=== PATIENT | female | born 1990 | race Caucasian/White ===

== ENCOUNTER 2016-12-02 14:41 | Observation (INO) | payer OTHER ==
[~2016-12-02] VITALS: Ht 157.5 cm; Wt 87.5 kg
[2016-12-02 15:35] VITALS: BP 117/74
== END 2016-12-02 17:55 | disposition home or self-care (01) ==
LOC: 4S 14:41
PROVIDERS: ADMIT Obstetrics & Gynecology; ATTEND Obstetrics & Gynecology
DX: O62.9 Abnormality of forces of labor, unspecified (principal); O26.893 Other specified pregnancy related conditions, third trimester; R10.9 Unspecified abdominal pain; Z3A.38 38 weeks gestation of pregnancy
CPT/HCPCS: 59025; G0378

== ENCOUNTER 2016-12-04 14:35 | Inpatient (IN) | payer OTHER ==
[~2016-12-04] VITALS: Ht 157.5 cm; Wt 87.5 kg
[2016-12-04 14:52] VITALS: BP 115/76
[2016-12-04] MEDS ORDERED: PREN1TAB80 PO (14:53)
[2016-12-04] MEDS ORDERED: OXYTOCIN 30 UNITS/LACT RINGERS 500 ML IV ONE (17:39)
[2016-12-04] MEDS ORDERED: RINGERS SOLUTION,LACTATED 1,000 ML IV SCH ×2 (17:39)
[2016-12-04] MEDS ORDERED: RINGERS SOLUTION,LACTATED 1,000 ML IV PRN (17:39)
[2016-12-04] MEDS ORDERED: METOCLOPRAMIDE HCL 5 MG/ML 2 ML VIAL IVP PRN (17:45)
[2016-12-04] MEDS ORDERED: CITRIC ACID/SODIUM CITRATE 30 ML SOLUTION UDCUP PO PRN (17:45)
[2016-12-04 18:07] LABS: BASOPHILS # (AUTO) 0.04 K/uL (0.00-0.20); BASOPHILS % (AUTO) 0.4 % (0.0-2.0); EOSINOPHILS # (AUTO) 0.18 K/uL (0.00-0.70); EOSINOPHILS % (AUTO) 1.85 % (1.0-6.0); HEMATOCRIT 38.5 % (36-46); LYMPHOCYTES # (AUTO) 1.8 K/uL (1.0-4.8); LYMPHOCYTES % (AUTO) 17.9 % (22.0-44.0); MEAN CORPUSCULAR HEMOGLOBIN 31.3 pg (26.0-34.0); MEAN CORPUSCULAR HGB CONC 33.7 G/dL (31.0-37.0); MEAN CORPUSCULAR VOLUME 93 fL (80-100); MONOCYTES # (AUTO) 0.8 K/uL (0.1-1.0); MONOCYTES % (AUTO) 7.5 % (2.0-9.0); NEUTROPHILS # (AUTO) 7.3 K/uL (1.8-7.7); NEUTROPHILS % (AUTO) 72.4 % (40.0-70.0); RED BLOOD CELL COUNT(AUTO) 4.14 MIL/uL (4.00-5.20); RED CELL DISTRIBUTION WIDTH 13.6 % (11.5-14.5)
[2016-12-04] MEDS: MISOPROSTOL 25 MCG TABLET VG SCH ×2 (18:18→21:25)
[2016-12-04] MEDS ORDERED: OXYGEN THERAPY IH SCH (20:00)
[2016-12-04] MEDS: FentaNYL CITRATE-PF 100 MCG/2 ML VIAL IVP PRN (23:55)
[2016-12-05] MEDS: FentaNYL CITRATE-PF 100 MCG/2 ML VIAL IVP PRN
[2016-12-05] MEDS ORDERED: LIDOCAINE HCL 2%/EPI 1:200,000/PF 10 ML VIAL ONE (00:59)
[2016-12-05] MEDS ORDERED: FentaNYL/BUPIV 0.125%/NS/PF 200 ML ED ONE (00:59)
[2016-12-05] MEDS ORDERED: FentaNYL/BUPIV 0.125%/NS/PF 200 ML ED PRN (01:18)
[2016-12-05] MEDS ORDERED: ONDANSETRON HCL 4 MG/2 ML VIAL IVP PRN (01:30)
[2016-12-05] MEDS ORDERED: DiphenhydrAMINE HCL 50 MG/ML VIAL IVP PRN (01:30)
[2016-12-05] MEDS ORDERED: PROMETHAZINE HCL 25 MG/ML VIAL IM PRN (01:30)
[2016-12-05] MEDS ORDERED: NALBUPHINE HCL 10 MG/ML VIAL IVP PRN (01:30)
[2016-12-05] MEDS ORDERED: LANOLIN 7 GM OINTMENT TP PRN (03:15)
[2016-12-05] MEDS ORDERED: ACETAMINOPHEN/CODEINE 300-30 MG TABLET PO PRN (03:15)
[2016-12-05] MEDS ORDERED: GLYCERIN/WITCH HAZEL LEAF 40 PADS JAR TP PRN (03:15)
[2016-12-05] MEDS ORDERED: BENZOCAINE 20%/MENTHOL 56 GM SPRAY CANISTER TP PRN (03:15)
[2016-12-05] MEDS: IBUPROFEN 600 MG TABLET PO PRN ×3 (05:15→23:57)
[2016-12-05] MEDS: ACETAMINOPHEN/CODEINE 300-30 MG TABLET PO PRN ×2 (07:45→19:04)
[2016-12-05] MEDS: SENNA/DOCUSATE SODIUM 187-50 MG TABLET PO SCH ×2 (09:02→20:40)
[2016-12-05] MEDS: MAGNESIUM HYDROXIDE SUSPENSION 30 ML UDCUP PO SCH ×2 (09:02→20:40)
[2016-12-06] MEDS: MISOPROSTOL 25 MCG TABLET VG SCH (08:29)
[2016-12-06] MEDS: SENNA/DOCUSATE SODIUM 187-50 MG TABLET PO SCH (08:29)
[2016-12-06] MEDS: MAGNESIUM HYDROXIDE SUSPENSION 30 ML UDCUP PO SCH (08:29)
[2016-12-06] MEDS: IBUPROFEN 600 MG TABLET PO PRN (08:33)
[2016-12-06] MEDS ORDERED: IBUP-2070 PO (09:26)
[2016-12-06] MEDS ORDERED: DSS100 PO (09:27)
== END 2016-12-06 11:40 | disposition home or self-care (01) | DRG 775 ==
LOC: OBSVTOIN 14:35 → 4S 14:35
PROVIDERS: ADMIT Obstetrics & Gynecology; ATTEND Obstetrics & Gynecology
PROC: 10E0XZZ Delivery of Products of Conception, External Approach (ICD-10-PCS; principal; 2016-12-05)
PROC: 0KQM0ZZ Repair Perineum Muscle, Open Approach (ICD-10-PCS; 2016-12-05)
PROC: 3E0R3CZ (ICD-10-PCS; 2016-12-05)
PROC: 00HU33Z Insertion of Infusion Device into Spinal Canal, Percutaneous Approach (ICD-10-PCS; 2016-12-05)
DX: O70.1 Second degree perineal laceration during delivery (principal); Z37.0 Single live birth; Z3A.39 39 weeks gestation of pregnancy
CPT/HCPCS: 89060; J2590; J3010; J3490; J7120